=== PATIENT | male | born 1945 | race Caucasian/White ===

== ENCOUNTER 2021-10-01 09:47 | Observation (INO) | payer MEDICARE, OTHER ==
[2021-09-24 15:39] LABS: CLARITY,URINE CLEAR (Clear); COLOR,URINE YELLOW (Yellow); GLUCOSE, URINE NEGATIVE (Neg); KETONES,URINE TRACE mg/dl (Neg); LEUKOCYTE ESTERASE ,URINE NEGATIVE (Neg); NITRITES, URINE NEGATIVE (Neg); OCCULT BLOOD,URINE NEGATIVE (Neg); PH,URINE 5.5 (4.8-8.0); PROTEIN,URINE NEGATIVE (Neg)
[2021-09-24 15:41] LABS: UA COLLECTION TYPE CLN CATCH MIDSTREAM
[2021-09-24 15:49] LABS: BASOPHILS % (AUTO) 0.8 % (0-1); EOSINOPHILS # (AUTO) 0.2 X10'3 (0-0.9); EOSINOPHILS % (AUTO) 3.5 % (0-6); LYMPHOCYTES # (AUTO) 1.3 X10'3 (1.1-4.8); LYMPHOCYTES % (AUTO) 25.4 % (21-51); MEAN CORPUSCULAR HEMOGLOBIN 34.1 PG (27.0-31.0); MEAN CORPUSCULAR HGB CONC 33.6 g/dL (33.0-36.5); MEAN CORPUSCULAR VOLUME 101.5 FL (78-98); MEAN PLATELET VOLUME 8.8 FL (7.4-10.4); MONOCYTES # (AUTO) 0.5 X10'3 (0-0.9); MONOCYTES % (AUTO) 9.8 % (2-12); NEUTROPHILS # (AUTO) 3.2 X10'3 (1.8-7.7); NEUTROPHILS % (AUTO) 60.5 % (42-75); PRE OP HEMATOCRIT 42.8 % (42.0-52.0); PRE OP HEMOGLOBIN 14.4 g/dL (14.0-17.9); PRE OP PLATELET COUNT 145 X10'3 (140-440); RED BLOOD COUNT 4.22 X10'6 (4.70-6.10); RED CELL DISTRIBUTION WIDTH 14.2 % (11.5-14.5)
[2021-09-24 15:51] LABS: ALBUMIN 3.9 G/DL (3.4-5.0); ALKALINE PHOSPHATASE 72 IU/L (46-116); BLOOD UREA NITROGEN 29 MG/DL (7-18); BUN/CREATININE RATIO 20.9 (5.4-32.0); CALCIUM 9.4 MG/DL (8.5-10.1); CHLORIDE 106 MMOL/L (99-107); CREATININE 1.39 MG/DL (0.60-1.10); PRE OP ALT 8 U/L (30-65); PRE OP ANION GAP 6 (8-16); PRE OP AST 19 U/L (10-37); PRE OP BILIRUB, TOTAL 1.2 MG/DL (0.0-1.0); PRE OP GLUCOSE 72 MG/DL (70-104); PRE OP POTASSIUM 4.5 MMOL/L (3.4-5.1); PRE OP SODIUM 141 MMOL/L (135-145); TOTAL CARBON DIOXIDE 29.1 MMOL/L (24-32); TOTAL PROTEIN 7.8 G/DL (6.4-8.2); eGFR 50 ML/MIN
[~2021-10-01] VITALS: Ht 177.8 cm; Wt 77.1 kg
[2021-10-01] VITALS (17 sets, daily range): BP systolic 107–134; BP diastolic 61–93
[~2021-10-01 09:47] MED LIST: AMA100C PO; ASPI-611 PO; CALC250T2 PO; CARB-126 PO; CARB1TAB60 PO; CARV-50 PO; CHOL400T8 PO; CYAN5000 SL; DIGO125T97 PO; DOCUMENT DATE & TIME OF BETA-BLOCKER PO ONE; LOSA50TA64 PO; LOVA20TA2 PO; WARF-55 PO; ceFAZolin inj. 2,000 MG in dextrose 5%-water 100 ML IV ONE; famotidine 20mg tablet PO ONE; ringers solution, lacted 1,000 ML IV SCH
[2021-10-01] MEDS: carbidoba-levodopa 25-100mg tablet PO SCH ×4 (10:51→21:08)
[2021-10-01 11:00] LABS: PRE OP INR 1.1 INR; PRE OP PROTIME 11.4 SECONDS (9.0-12.0)
[2021-10-01] MEDS ORDERED: ondansetron/PF 4mg/2ml inj IV PRN ×2 (11:05→15:40)
[2021-10-01] MEDS ORDERED: ringers solution, lacted 1,000 ML IV SCH (11:05)
[2021-10-01] MEDS ORDERED: morphine 2 MG/ML inj. syringe IV PRN (11:05)
[2021-10-01] MEDS ORDERED: morphine 4 MG/ML inj SYRINge IV PRN (11:05)
[2021-10-01] MEDS ORDERED: proCHLORperazine 10 MG/2 ml inj IV PRN (11:05)
[2021-10-01] MEDS ORDERED: meperidine/PF 25mg/ml syringe IV PRN ×3 (11:05)
[2021-10-01] MEDS ORDERED: BUPIVAcaine/PF 2.5 mg/ml (0.25%) 30ml vial ONE (12:10)
[2021-10-01] MEDS ORDERED: glycopyrrolate 0.2mg/ml inj ONE (13:17)
[2021-10-01] MEDS ORDERED: dexamethasone sod phosphate 10mg/ml inj ONE (13:17)
[2021-10-01] MEDS ORDERED: ondansetron/PF 4mg/2ml inj ONE (13:17)
[2021-10-01] MEDS ORDERED: desflurane 240ml liquid inh. IH ONE (13:17)
[2021-10-01] MEDS ORDERED: midazolam 1 mg/ML 2ml injection ONE (13:25)
[2021-10-01] MEDS ORDERED: fentaNYL /PF 50mcg/ml 5ml ampule ONE (13:25)
[2021-10-01] MEDS ORDERED: acetaminophen 1,000mg/100ml IV 100 ML IV ONE (15:10)
[2021-10-01] MEDS ORDERED: etomidate 2mg/ml inj. ONE (15:10)
[2021-10-01] MEDS ORDERED: neostigmine methylsulfate 1 MG/ML 10ml vial ONE (15:10)
[2021-10-01] MEDS ORDERED: rocuronium 10mg/ml inj IV ONE (15:15)
--- NOTE | 2021-10-01 15:20 | NUR ---
Received from OR via , accompanied by Anesthesiologist and report given by Anesthesiolgist. PATIENT A&OX4, DENIES PAIN, V/S WNL, SCD ON , PIV 20G LUE, DERMABONDED LAPS SITES CLOSED CDI TO ABDOMEN. F/C DRAINING CLEAR YELLOW URINE.
--- NOTE | 2021-10-01 16:10 | NUR ---
PATIENT A&OX4, DENIES PAIN, V/S WNL, SCD ON , PIV 20G LUE, DERMABONDED LAPS SITES CLOSED CDI TO ABDOMEN, NO S/S OF BLEEDING. F/C DRAINING CLEAR YELLOW URINE. PATIENT TAKEN TO 4014B WITH ALL BELONGINGS AND HOOKED UP TO MONITORS IN ROOM AND REPORT GIVEN TO RN WHO HAS TAKEN OVER PATIENT CARE
--- NOTE | 2021-10-01 16:49 | NUR ---
Spoke to the pharmacy about the order for Sinemet (one is for 17:00 and the other one is for 18:30), she said she would call Dr. Schaffer to clarify
--- NOTE | 2021-10-01 18:49 | NUR ---
Patient in room ORTHO 4014. I have received report from Radha RAHMAN and had the opportunity to ask questions and assume patient care.
[2021-10-01] MEDS ORDERED: digoxin 125mcg (0.125mg) tablet PO SCH (21:00)
[2021-10-01] MEDS ORDERED: atorvastatin 10mg tablet PO SCH (21:00)
[2021-10-01] MEDS: carVEDilol 12.5mg tablet PO SCH (21:11)
[2021-10-01] MEDS: amantadine 100 MG capsule PO SCH (21:32)
[2021-10-01] MEDS: HYDROcodone/acetaminophen 10/325mg tab PO PRN (21:40)
--- NOTE | 2021-10-02 05:40 | NUR ---
F/C dc'd at 0530 . He had 1650 in UO last night, and then has voided another 200 since- light yellow.
[2021-10-02 06:00] VITALS: BP 101/71
[2021-10-02 06:05] LABS: APTT 29 SECONDS (22-32)
--- NOTE | 2021-10-02 06:36 | NUR ---
Problems reprioritized. Patient report given, questions answered & plan of care reviewed with Nevin RAHMAN.
--- NOTE | 2021-10-02 06:42 | NUR ---
Patient in room ORTHO 4014. I have received report from JOSIAH Ibarra and had the opportunity to ask questions and assume patient care.
[2021-10-02] MEDS ORDERED: losartan 50mg tablet PO SCH (08:00)
[2021-10-02] MEDS ORDERED: calcium carbonate 500mg tablet PO SCH (08:00)
[2021-10-02] MEDS ORDERED: warfarin 7.5mg tablet PO SCH ×2 (08:00→14:29)
[2021-10-02] MEDS ORDERED: aspirin 81mg, enteric-coated 1 TAB TABLET.DR PO SCH (08:00)
[2021-10-02] MEDS ORDERED: cyanocobalamin 500mcg tablet PO SCH (08:00)
[2021-10-02] MEDS ORDERED: carbidopa/levodopa 25/100mg CR tablet PO SCH ×2 (08:00→09:01)
[2021-10-02] MEDS ORDERED: cholecalciferol (vitamin D3) 400 unit (10mcg) tablet PO SCH (08:00)
[2021-10-02] MEDS: carbidoba-levodopa 25-100mg tablet PO SCH ×2 (08:27→13:39)
[2021-10-02] MEDS: amantadine 100 MG capsule PO SCH (08:30)
[2021-10-02] MEDS: carVEDilol 12.5mg tablet PO SCH (08:30)
[2021-10-02] MEDS: HYDROcodone/acetaminophen 10/325mg tab PO PRN (08:31)
--- NOTE | 2021-10-02 09:00 | NUR ---
Called pharmacy about vitamin B12 scheduled (10 tabs) - not enough tabs in the omnicell. Pharmacist said that the patient takes sublingual B12 and the 10 tabs will not be absorbed PO so they will change that in the computer. Also there is a note from the provider to restart Coumadin on 10/02/21 scheduled for 0800. This is supposed to be scheduled for night time so pharmacist will change it.
[2021-10-02] MEDS ORDERED: CYANOCOBALAMIN 5000 MCG PO SCH (09:06)
[2021-10-02 10:00] VITALS: BP 110/80
[2021-10-02 13:55] VITALS: BP 102/67
--- NOTE | 2021-10-02 15:38 | NUR ---
Patient was discharged with instructions and verbalizing understanding of instructions, in wheelchair accompanied by family and nursing staff, going home via private vehicle. All lines and tubes have been removed including PIV with cannula intact, tele monitor. Education has been provided and all questions answered. No new prescriptions at this time. Patient will call tomorrow morning to make a follow up appointment with Dr. Zarco. Patient is stable and appropriate for discharge.
[2021-10-03] MEDS ORDERED: warfarin 5mg tablet PO SCH (21:00)
[2021-10-03] MEDS ORDERED: ONDA4TAB12 PO ×2 (23:34)
[2021-10-03] MEDS ORDERED: HYDR-3972 PO ×2 (23:34)
[2021-10-03] MEDS ORDERED: DOCU-151 PO ×2 (23:34)
[2021-10-05] MEDS ORDERED: warfarin 5mg tablet PO SCH (08:00)
[2021-10-07] MEDS ORDERED: warfarin 7.5mg tablet PO SCH (17:45)
== END 2021-10-02 15:45 | disposition home or self-care (01) ==
LOC: PAS 09:47 → ORTHO 4S 15:37
PROVIDERS: ADMIT Surgery; ATTEND Surgery
DX: K40.90 Unilateral inguinal hernia, without obstruction or gangrene, not specified as recurrent (principal); Z20.822 Contact with and (suspected) exposure to COVID-19; G20 Parkinson's disease; I42.9 Cardiomyopathy, unspecified; I48.91 Unspecified atrial fibrillation; M35.3 Polymyalgia rheumatica; Z85.828 Personal history of other malignant neoplasm of skin; Z87.891 Personal history of nicotine dependence; Z79.899 Other long term (current) drug therapy
CPT/HCPCS: 36415; 49650; 80053; 81003; 82948; 85025; 85610; 85730; 87081; 87811; C1758; C1781; G0378; J0131; J0690; J1100; J2250; J2405; J2710; J3010; J3490; J7030; J7060; J7120; S2900; A4215; A4618; A6212

== ENCOUNTER 2021-10-03 19:13 | Emergency (ER) | payer MEDICARE, OTHER ==
[~2021-10-03] VITALS: Ht 177.8 cm; Wt 79.5 kg
[~2021-10-03 19:13] MED LIST changes: -DOCUMENT DATE & TIME OF BETA-BLOCKER PO ONE; -ceFAZolin inj. 2,000 MG in dextrose 5%-water 100 ML IV ONE; -famotidine 20mg tablet PO ONE; -ringers solution, lacted 1,000 ML IV SCH
[2021-10-03] MEDS ORDERED: ondansetron/PF 4mg/2ml inj IV ONE (22:10)
[2021-10-03 22:29] LABS: CLARITY,URINE CLEAR (Clear); COLOR,URINE YELLOW (Yellow); GLUCOSE, URINE NEGATIVE (Neg); KETONES,URINE NEGATIVE (Neg); LEUKOCYTE ESTERASE ,URINE NEGATIVE (Neg); NITRITES, URINE NEGATIVE (Neg); OCCULT BLOOD,URINE TRACE-INTACT (Neg); PROTEIN,URINE NEGATIVE (Neg); UROBILINOGEN,URINE 0.2 E.U/dL (0.2-1.0)
[2021-10-03] MEDS: morphine 2 MG/ML inj. syringe IV PRN ×3 (22:29→23:40)
[2021-10-03 22:30] LABS: UA COLLECTION TYPE NON-SPECIFIED
[2021-10-03 22:33] LABS: BASOPHILS % (AUTO) 0.3 % (0-1); EOSINOPHILS # (AUTO) 0.1 X10'3 (0-0.9); HEMATOCRIT 41.5 % (42.0-52.0); LYMPHOCYTES # (AUTO) 0.8 X10'3 (1.1-4.8); LYMPHOCYTES % (AUTO) 13.5 % (21-51); MEAN CORPUSCULAR HGB CONC 33.7 g/dL (33.0-36.5); MEAN CORPUSCULAR VOLUME 100.8 FL (78-98); MEAN PLATELET VOLUME 8.8 FL (7.4-10.4); MONOCYTES # (AUTO) 0.5 X10'3 (0-0.9); MONOCYTES % (AUTO) 8.7 % (2-12); NEUTROPHILS # (AUTO) 4.7 X10'3 (1.8-7.7); NEUTROPHILS % (AUTO) 75.5 % (42-75); PLATELET COUNT 137 X10'3 (140-440); RED BLOOD COUNT 4.11 X10'6 (4.70-6.10); RED CELL DISTRIBUTION WIDTH 14.4 % (11.5-14.5); WHITE BLOOD COUNT 6.2 X10'3 (4.5-11.0)
[2021-10-03 22:44] LABS: BACTERIA,URINE NONE SEEN /HPF (Neg); MUCUS STRANDS NONE SEEN /LPF (Neg); RBC,URINE 0-2 /HPF (0-2); SQUAMOUS EPITHELIAL CELL,UR FEW /LPF (FEW); WBC,URINE 0-4 /HPF (0-4)
[2021-10-03 22:52] LABS: ALANINE AMINOTRANSFERASE 10 U/L (12-78); ALBUMIN 3.5 G/DL (3.4-5.0); ALBUMIN/GLOBULIN RATIO 0.9 (1.1-1.5); ALKALINE PHOSPHATASE 66 IU/L (46-116); ANION GAP 5 (8-16); ASPARTATE AMINO TRANSFERASE 17 U/L (10-37); BILIRUBIN,TOTAL 1.1 MG/DL (0.1-1.0); BLOOD UREA NITROGEN 24 MG/DL (7-18); BUN/CREATININE RATIO 17.6 (5.4-32.0); CALCIUM 9.1 MG/DL (8.5-10.1); CHLORIDE 102 MMOL/L (99-107); CREATININE 1.36 MG/DL (0.60-1.10); GLUCOSE 103 MG/DL (70-104); POTASSIUM 4.6 MMOL/L (3.5-5.1); SODIUM 137 MMOL/L (135-145); TOTAL CARBON DIOXIDE 30.3 MMOL/L (24-32); TOTAL PROTEIN 7.2 G/DL (6.4-8.2); eGFR 51 ML/MIN
[2021-10-03] MEDS ORDERED: HYDR-3972 PO ×2 (23:34)
[2021-10-03] MEDS ORDERED: ONDA4TAB12 PO ×2 (23:34)
[2021-10-03] MEDS ORDERED: DOCU-151 PO ×2 (23:34)
[2021-10-03 23:57] VITALS: BP 135/85
== END 2021-10-03 23:59 | disposition home or self-care (01) ==
LOC: ER 19:14
DX: G89.18 Other acute postprocedural pain (principal); M54.6 Pain in thoracic spine; Z87.891 Personal history of nicotine dependence
CPT/HCPCS: 36415; 71045; 80053; 81001; 85025; 93005; 96374; 96375; 99285; J2270; J2405

== ENCOUNTER 2021-10-05 16:19 | Inpatient (IN) | payer MEDICARE, OTHER ==
[~2021-10-05] VITALS: Ht 177.8 cm; Wt 79.5 kg
[~2021-10-05 16:19] MED LIST changes: +DOCU-151 PO; +HYDR-3972 PO; +ONDA4TAB12 PO
[2021-10-05] MEDS ORDERED: ringers solution, lacted 1,000 ML IV ONE ×2 (16:35→17:30)
--- NOTE | 2021-10-05 16:37 | NUR ---
SPOKE WITH DR BEARDEN REGARDING PT LOW BLOOD PRESSURE IN TRIAGE. RECEIVED VERBAL ORDERS FOR CBC, CMP, EKG, AND 1LITER BOLUS OF LACTATED RINGERS IV. ORDERS PLACED RECEIVED
[2021-10-05 16:51] LABS: BASOPHILS % (AUTO) 0.3 % (0-1); EOSINOPHILS % (AUTO) 1.1 % (0-6); HEMATOCRIT 43.1 % (42.0-52.0); HEMOGLOBIN 14.6 g/dl (14.0-17.9); LYMPHOCYTES # (AUTO) 0.4 X10'3 (1.1-4.8); LYMPHOCYTES % (AUTO) 10.1 % (21-51); MEAN CORPUSCULAR HEMOGLOBIN 34.1 PG (27.0-31.0); MEAN CORPUSCULAR VOLUME 100.3 FL (78-98); MEAN PLATELET VOLUME 8.7 FL (7.4-10.4); MONOCYTES # (AUTO) 0.5 X10'3 (0-0.9); MONOCYTES % (AUTO) 14.6 % (2-12); NEUTROPHILS # (AUTO) 2.8 X10'3 (1.8-7.7); NEUTROPHILS % (AUTO) 73.9 % (42-75); PLATELET COUNT 155 X10'3 (140-440); RED BLOOD COUNT 4.29 X10'6 (4.70-6.10); RED CELL DISTRIBUTION WIDTH 13.9 % (11.5-14.5); WHITE BLOOD COUNT 3.7 X10'3 (4.5-11.0)
[2021-10-05 17:11] LABS: ALANINE AMINOTRANSFERASE 10 U/L (12-78); ALBUMIN 3.5 G/DL (3.4-5.0); ALBUMIN/GLOBULIN RATIO 0.9 (1.1-1.5); ALKALINE PHOSPHATASE 68 IU/L (46-116); ANION GAP 8 (8-16); ASPARTATE AMINO TRANSFERASE 19 U/L (10-37); BILIRUBIN,TOTAL 1.5 MG/DL (0.1-1.0); BLOOD UREA NITROGEN 45 MG/DL (7-18); BUN/CREATININE RATIO 18.9 (5.4-32.0); CALCIUM 9.2 MG/DL (8.5-10.1); CHLORIDE 102 MMOL/L (99-107); CREATININE 2.38 MG/DL (0.60-1.10); GLUCOSE 136 MG/DL (70-104); SODIUM 139 MMOL/L (135-145); TOTAL PROTEIN 7.5 G/DL (6.4-8.2); eGFR 27 ML/MIN
--- NOTE | 2021-10-05 18:30 | NUR ---
ASSUMED CARE OF PT. AWAKE AND ALERT. PLAN OF CARE DISCUSSED WITH PT. VERBELIZED UNDERSTANDING. WILL MONITOR.
[2021-10-05] MEDS ORDERED: magnesium 4gm in 100ml NS 100 ML IV PRN (19:40)
[2021-10-05] MEDS ORDERED: CefTRIAXone 2gm/D5W 50ml BAG 50 ML IV ONE (19:40)
[2021-10-05] MEDS ORDERED: ondansetron/PF 4mg/2ml inj IV PRN (19:40)
[2021-10-05] MEDS ORDERED: magnesium Cl slow-release 64mg tablet PO PRN (19:40)
[2021-10-05] MEDS ORDERED: morphine 2 MG/ML inj. syringe IV PRN (19:40)
[2021-10-05] MEDS ORDERED: potassium CL 10mEq/100ml bag 100 ML IV PRN (19:40)
[2021-10-05] MEDS ORDERED: acetaminophen 325mg tablet PO PRN ×2 (19:40)
[2021-10-05] MEDS ORDERED: HYDROcodone/acetaminophen 5mg/325mg tablet PO PRN (19:40)
[2021-10-05] MEDS ORDERED: magnesium hydroxide 30ml (MOM) UD suspension PO PRN (19:40)
[2021-10-05] MEDS ORDERED: POTASSIUM BICARB 20meq eff tab 20 MEQ TABLET.EFF PO PRN ×2 (19:40)
[2021-10-05] MEDS ORDERED: magnesium 2GM in 50ml NS 50 ML IV PRN (19:40)
[2021-10-05] MEDS: heparin, porcine 5000 units/ml vial SQ SCH (20:29)
[2021-10-05] MEDS: normal saline 1000ml 1,000 ML IV SCH (20:29)
[2021-10-05] MEDS: K and/or MAG REPLACEMENT MC SCH (20:30)
[2021-10-05] MEDS ORDERED: temazepam 15mg capsule PO PRN (21:00)
[2021-10-05] MEDS ORDERED: HYDR-4298 PO (21:16)
[2021-10-05] MEDS ORDERED: ONDA4TAB12 PO (21:19)
--- NOTE | 2021-10-05 21:20 | NUR ---
BLADDER SCAN PT. 226MLS IN BLADDER. PER DR. SHARP HOLD CABA CATH AT THIS TIME.
[2021-10-05] MEDS ORDERED: DOCU-148 PO (21:45)
--- NOTE | 2021-10-05 22:00 | NUR ---
Received report from WOOD STRIP BLOCK FLOOR INSTALLERJOSIAH Vargas. Patient to follow shortly.
--- NOTE | 2021-10-05 22:10 | NUR ---
Patient arrived from the ER via gurney accompanied by his . A&Ox4, pt transferred himself to bed min assist and VS taken.
[2021-10-05 22:15] VITALS: BP 114/72
[2021-10-05] MEDS ORDERED: CARB1TAB42 PO (23:40)
[2021-10-06] MEDS: carbidopa/levodopa 50/200mg CR tablet PO SCH ×2 (00:06→21:26)
[2021-10-06] MEDS: amantadine 100 MG capsule PO SCH ×3 (00:06→21:21)
[2021-10-06] MEDS: atorvastatin 10mg tablet PO SCH ×2 (00:06→21:25)
[2021-10-06] MEDS: carVEDilol 12.5mg tablet PO SCH ×3 (00:06→20:00)
[2021-10-06] MEDS: digoxin 125mcg (0.125mg) tablet PO SCH ×2 (00:12→21:24)
[2021-10-06 02:00] VITALS: BP 101/70
--- NOTE | 2021-10-06 04:30 | NUR ---
Bladder scan reveals 407CC. Patient voided 50cc out in urinal. Post void bladder scan =336cc.
[2021-10-06 06:43] LABS: BASOPHILS % (AUTO) 0.4 % (0-1); EOSINOPHILS # (AUTO) 0.2 X10'3 (0-0.9); EOSINOPHILS % (AUTO) 4.5 % (0-6); HEMATOCRIT 37.7 % (42.0-52.0); HEMOGLOBIN 12.8 g/dl (14.0-17.9); LYMPHOCYTES # (AUTO) 0.7 X10'3 (1.1-4.8); LYMPHOCYTES % (AUTO) 21.6 % (21-51); MEAN CORPUSCULAR HEMOGLOBIN 34.3 PG (27.0-31.0); MEAN CORPUSCULAR VOLUME 100.9 FL (78-98); MEAN PLATELET VOLUME 9.1 FL (7.4-10.4); MONOCYTES # (AUTO) 0.7 X10'3 (0-0.9); MONOCYTES % (AUTO) 21.4 % (2-12); NEUTROPHILS # (AUTO) 1.8 X10'3 (1.8-7.7); NEUTROPHILS % (AUTO) 52.1 % (42-75); PLATELET COUNT 153 X10'3 (140-440); RED BLOOD COUNT 3.74 X10'6 (4.70-6.10); WHITE BLOOD COUNT 3.4 X10'3 (4.5-11.0)
[2021-10-06 07:06] LABS: PLATELET ESTIMATE NORMAL; TOTAL CELLS COUNTED 100
[2021-10-06 07:16] LABS: ALANINE AMINOTRANSFERASE 13 U/L (12-78); ALBUMIN 2.9 G/DL (3.4-5.0); ALBUMIN/GLOBULIN RATIO 0.8 (1.1-1.5); ALKALINE PHOSPHATASE 56 IU/L (46-116); ANION GAP 8 (8-16); ASPARTATE AMINO TRANSFERASE 19 U/L (10-37); BILIRUBIN,TOTAL 1.2 MG/DL (0.1-1.0); BLOOD UREA NITROGEN 38 MG/DL (7-18); BUN/CREATININE RATIO 25.3 (5.4-32.0); CALCIUM 8.3 MG/DL (8.5-10.1); CHLORIDE 101 MMOL/L (99-107); GLUCOSE 84 MG/DL (70-104); POTASSIUM 4.8 MMOL/L (3.5-5.1); SODIUM 138 MMOL/L (135-145); TOTAL CARBON DIOXIDE 28.9 MMOL/L (24-32); TOTAL PROTEIN 6.4 G/DL (6.4-8.2); eGFR 45 ML/MIN
[2021-10-06 07:20] VITALS: BP 109/64
[2021-10-06] MEDS: carbidoba-levodopa 25-100mg tablet PO SCH ×4 (07:20→21:25)
[2021-10-06] MEDS: heparin, porcine 5000 units/ml vial SQ SCH ×2 (07:21→21:21)
[2021-10-06] MEDS: K and/or MAG REPLACEMENT MC SCH ×2 (07:21→20:00)
[2021-10-06] MEDS: losartan 50mg tablet PO SCH (07:21)
[2021-10-06 10:09] VITALS: BP 100/64
[2021-10-06] MEDS: normal saline 1000ml 1,000 ML IV SCH ×2 (10:36→23:30)
[2021-10-06 18:00] VITALS: BP 99/58
--- NOTE | 2021-10-06 18:09 | NUR ---
Problems reprioritized. Patient report given, questions answered & plan of care reviewed with JOSIAH Ibarra.
--- NOTE | 2021-10-06 18:15 | NUR ---
Patient in room ORTHO 4009. I have received report from Antonia RAHMAN and had the opportunity to ask questions and assume patient care.
[2021-10-06 21:20] VITALS: BP 100/63
[2021-10-06] MEDS: diatr meglu/diatrizoate 30ml oral sol.-(3 dose) bottle PO SCH (21:22)
[2021-10-06 22:00] VITALS: BP 102/68
[2021-10-07 07:10] VITALS: BP 103/74
[2021-10-07 07:10] LABS: BASOPHILS % (AUTO) 0.5 % (0-1); EOSINOPHILS # (AUTO) 0.2 X10'3 (0-0.9); EOSINOPHILS % (AUTO) 4.9 % (0-6); HEMATOCRIT 36.5 % (42.0-52.0); HEMOGLOBIN 12.5 g/dl (14.0-17.9); LYMPHOCYTES % (AUTO) 24.7 % (21-51); MEAN CORPUSCULAR HEMOGLOBIN 34.6 PG (27.0-31.0); MEAN CORPUSCULAR HGB CONC 34.2 g/dL (33.0-36.5); MEAN CORPUSCULAR VOLUME 100.9 FL (78-98); MONOCYTES # (AUTO) 0.7 X10'3 (0-0.9); MONOCYTES % (AUTO) 16.4 % (2-12); NEUTROPHILS # (AUTO) 2.2 X10'3 (1.8-7.7); NEUTROPHILS % (AUTO) 53.5 % (42-75); PLATELET COUNT 145 X10'3 (140-440); RED BLOOD COUNT 3.62 X10'6 (4.70-6.10); RED CELL DISTRIBUTION WIDTH 13.9 % (11.5-14.5); WHITE BLOOD COUNT 4.1 X10'3 (4.5-11.0)
[2021-10-07] MEDS: diatr meglu/diatrizoate 30ml oral sol.-(3 dose) bottle PO SCH ×2 (07:10→08:32)
[2021-10-07 07:34] LABS: ALANINE AMINOTRANSFERASE 9 U/L (12-78); ALBUMIN 2.7 G/DL (3.4-5.0); ALBUMIN/GLOBULIN RATIO 0.8 (1.1-1.5); ANION GAP 9 (8-16); ASPARTATE AMINO TRANSFERASE 25 U/L (10-37); BILIRUBIN,TOTAL 1.2 MG/DL (0.1-1.0); BLOOD UREA NITROGEN 23 MG/DL (7-18); BUN/CREATININE RATIO 20.5 (5.4-32.0); CALCIUM 8.4 MG/DL (8.5-10.1); CHLORIDE 104 MMOL/L (99-107); CREATININE 1.12 MG/DL (0.60-1.10); GLUCOSE 69 MG/DL (70-104); POTASSIUM 4.2 MMOL/L (3.5-5.1); SODIUM 140 MMOL/L (135-145); TOTAL CARBON DIOXIDE 27.5 MMOL/L (24-32); TOTAL PROTEIN 6.2 G/DL (6.4-8.2); eGFR 64 ML/MIN
[2021-10-07] MEDS: heparin, porcine 5000 units/ml vial SQ SCH ×2 (08:00→21:16)
[2021-10-07] MEDS: K and/or MAG REPLACEMENT MC SCH ×2 (08:00→20:00)
[2021-10-07 08:22] LABS: PLATELET ESTIMATE DECREASED; TOTAL CELLS COUNTED 100
[2021-10-07 08:34] LABS: ALKALINE PHOSPHATASE 56 IU/L (46-116)
[2021-10-07] MEDS: amantadine 100 MG capsule PO SCH ×2 (09:14→21:15)
[2021-10-07] MEDS: carbidoba-levodopa 25-100mg tablet PO SCH ×4 (09:14→21:15)
[2021-10-07] MEDS: carVEDilol 12.5mg tablet PO SCH ×2 (09:17→20:00)
[2021-10-07] MEDS: losartan 50mg tablet PO SCH (09:17)
[2021-10-07 10:25] VITALS: BP 127/79
--- NOTE | 2021-10-07 13:25 | NUR ---
PAGER ID: [phone] MESSAGE: [id number] Lexii Owens: HELIO CT scan report has just resulted. thanks! [email or web address] [phone]
[2021-10-07] MEDS: normal saline 1000ml 1,000 ML IV SCH (14:10)
[2021-10-07 18:00] VITALS: BP 114/78
--- NOTE | 2021-10-07 18:10 | NUR ---
Problems reprioritized. Patient report given, questions answered & plan of care reviewed with JOSIAH Ibarra.
--- NOTE | 2021-10-07 18:30 | NUR ---
Patient in room ORTHO 4009. I have received report from Antonia RAHMAN and had the opportunity to ask questions and assume patient care.
[2021-10-07 21:15] VITALS: BP 112/76
[2021-10-07] MEDS: carbidopa/levodopa 50/200mg CR tablet PO SCH (21:15)
[2021-10-07] MEDS: atorvastatin 10mg tablet PO SCH (21:15)
[2021-10-07] MEDS: digoxin 125mcg (0.125mg) tablet PO SCH (21:24)
[2021-10-07 22:00] VITALS: BP 115/81
[2021-10-08 02:00] VITALS: BP 103/68
[2021-10-08] MEDS: normal saline 1000ml 1,000 ML IV SCH (04:52)
--- NOTE | 2021-10-08 06:34 | NUR ---
Patient in room ORTHO 4009. I have received report from Elsy RAHMAN and had the opportunity to ask questions and assume patient care.
[2021-10-08 06:46] LABS: BASOPHILS % (AUTO) 0.6 % (0-1); EOSINOPHILS # (AUTO) 0.2 X10'3 (0-0.9); EOSINOPHILS % (AUTO) 3.9 % (0-6); HEMATOCRIT 36.9 % (42.0-52.0); HEMOGLOBIN 12.5 g/dl (14.0-17.9); LYMPHOCYTES % (AUTO) 25.4 % (21-51); MEAN CORPUSCULAR HEMOGLOBIN 34.4 PG (27.0-31.0); MEAN CORPUSCULAR HGB CONC 33.8 g/dL (33.0-36.5); MEAN CORPUSCULAR VOLUME 101.8 FL (78-98); MEAN PLATELET VOLUME 8.8 FL (7.4-10.4); MONOCYTES # (AUTO) 0.5 X10'3 (0-0.9); NEUTROPHILS # (AUTO) 2.3 X10'3 (1.8-7.7); NEUTROPHILS % (AUTO) 57.1 % (42-75); PLATELET COUNT 146 X10'3 (140-440); RED BLOOD COUNT 3.63 X10'6 (4.70-6.10); WHITE BLOOD COUNT 4.1 X10'3 (4.5-11.0)
--- NOTE | 2021-10-08 06:49 | NUR ---
Problems reprioritized. Patient report given, questions answered & plan of care reviewed with Sridevi RAHMAN.
[2021-10-08 07:00] VITALS: BP 111/73
[2021-10-08 07:17] LABS: ALANINE AMINOTRANSFERASE 11 U/L (12-78); ALBUMIN 2.8 G/DL (3.4-5.0); ALBUMIN/GLOBULIN RATIO 0.8 (1.1-1.5); ALKALINE PHOSPHATASE 61 IU/L (46-116); ANION GAP 7 (8-16); ASPARTATE AMINO TRANSFERASE 27 U/L (10-37); BILIRUBIN,TOTAL 1.1 MG/DL (0.1-1.0); BLOOD UREA NITROGEN 15 MG/DL (7-18); BUN/CREATININE RATIO 13.5 (5.4-32.0); CALCIUM 8.7 MG/DL (8.5-10.1); CHLORIDE 107 MMOL/L (99-107); CREATININE 1.11 MG/DL (0.60-1.10); GLUCOSE 80 MG/DL (70-104); POTASSIUM 4.1 MMOL/L (3.5-5.1); SODIUM 143 MMOL/L (135-145); TOTAL CARBON DIOXIDE 28.6 MMOL/L (24-32); TOTAL PROTEIN 6.3 G/DL (6.4-8.2); eGFR 64 ML/MIN
[2021-10-08] MEDS: K and/or MAG REPLACEMENT MC SCH (08:00)
[2021-10-08 08:17] VITALS: BP_SYST 111
[2021-10-08] MEDS: losartan 50mg tablet PO SCH (08:17)
[2021-10-08] MEDS: carVEDilol 12.5mg tablet PO SCH (08:17)
[2021-10-08] MEDS: carbidoba-levodopa 25-100mg tablet PO SCH (08:17)
[2021-10-08] MEDS: amantadine 100 MG capsule PO SCH (08:17)
[2021-10-08] MEDS: heparin, porcine 5000 units/ml vial SQ SCH (08:18)
[2021-10-08] MEDS ORDERED: POLY17PO10 PO (09:28)
--- NOTE | 2021-10-08 10:50 | NUR ---
PATIENT UP AND ABOUT AMBULATING WITH AND AIDE. IS FOR DISCHARGE NO C/O PAIN WAS ABLE TO HAVE bm THIS AM. aLL dC INSTRUCTIONS GIVEN TO PATIENT AND . PATIENT dC HOME VIA PRIVATE CAR IN STABLE CONDITION TO HOME.
--- NOTE | 2021-10-08 11:31 | NUR ---
Patient Dc home 1130hrs
--- NOTE | 2021-10-14 12:16 | NUR ---
Case Management DC follow up: Spoke with Patient via telephone.S/P: Patient Reports: Denies Acute/continuous CP, emergent SOB, resp distress, orthopnea, dyspnea, , NV, weakness, vertigo, syncope episodes, orthostatic hypotension, KELSEY, blurry vision, s/s of stroke/BE-FAST, dysuria, hematuria , retention, abdominal pain/distention, hematochezia, melena, unexplained bruising, bleeding, fever, chills.Verbalizes he has been passing flatus; however, has not had a bowel movement in three days.Verbalized when he went to pharmacy there wasn't any MiraLAX for him to picker packer. I phoned pharmacy ,was apprised that Patient's prescriptions were filled and ready for Patient to picker packer.Telephoned Patient back and apprised him that his prescriptions were ready for picker packer.Verbalizes understanding of new Rx:, why prescribed; continues/resumes current Rx as ordered.Verbalizes his hernia repair incision is intact; no s/s of infection ;verbalizing there is no signs of redness, swelling, bad odor, and/or warmth to touch.Verbalizes understanding of s/s that warrant a 9-11/ER visit for further evaluation. Verbalizes compliance with aftercare; is up walking more each day. Verbalizes no signs of tenderness, swelling nor redness at his calves.Verbalizes he has appointment with 10/14/21, and plans to call and schedule appoint with Dr. Knight.Verbalizes the care at [facility] was wonderful. Needs met, questions/concerns addressed at DC; no further questions/concerns regarding recent hospital stay and/or DC status at this time.
== END 2021-10-08 11:20 | disposition home or self-care (01) | DRG 388 ==
LOC: ER 16:20 → ED HOLD 19:44 → ORTHO 4S 22:11
PROVIDERS: ADMIT Internal Medicine; ATTEND Family Medicine
PROC: 0D9670Z Drainage of Stomach with Drainage Device, Via Natural or Artificial Opening (ICD-10-PCS; principal; 2021-10-05)
DX: K56.600 Partial intestinal obstruction, unspecified as to cause (principal); N17.0 Acute kidney failure with tubular necrosis; I42.9 Cardiomyopathy, unspecified; K56.7 Ileus, unspecified; N18.30 Chronic kidney disease, stage 3 unspecified; I48.91 Unspecified atrial fibrillation; G20 Parkinson's disease; K59.03 Drug induced constipation; E86.0 Dehydration; T50.995A Adverse effect of other drugs, medicaments and biological substances, initial encounter; I05.9 Rheumatic mitral valve disease, unspecified; I25.10 Atherosclerotic heart disease of native coronary artery without angina pectoris; I50.9 Heart failure, unspecified; M35.3 Polymyalgia rheumatica; Z79.01 Long term (current) use of anticoagulants; Z86.73 Personal history of transient ischemic attack (TIA), and cerebral infarction without residual deficits; Z95.810 Presence of automatic (implantable) cardiac defibrillator; Y92.89 Other specified places as the place of occurrence of the external cause
CPT/HCPCS: 36415; 71045; 74176; 80053; 81001; 83605; 83880; 84145; 84484; 85007; 85025; 85610; 87040; 87081; 93005; 96374; 96375; 99285; G0378; J0696; J1644; J2270; J2405; J7030; J7120; Q9963

== ENCOUNTER 2023-03-22 11:56 | Inpatient (IN) | payer MEDICARE, OTHER ==
[~2023-03-22] VITALS: Ht 175.3 cm; Wt 81.8 kg
[~2023-03-22 11:56] MED LIST changes: +CARB1TAB42 PO; +DOCU-148 PO; -DOCU-151 PO; -HYDR-3972 PO; +HYDR-4298 PO
[2023-03-22] MEDS ORDERED: TETanus/Pertussis (Acell)/Diphther VAC/PF (Tdap-Adult) 0.5ml syringe IMVAC ONE (15:15)
[2023-03-22] MEDS ORDERED: acetaminophen 325mg tablet PO ONE (17:15)
[2023-03-22 17:18] LABS: BILIRUBIN,URINE NEGATIVE (Neg); CLARITY,URINE CLEAR (Clear); COLOR,URINE YELLOW (Yellow); GLUCOSE, URINE NEGATIVE (Neg); KETONES,URINE NEGATIVE (Neg); LEUKOCYTE ESTERASE ,URINE NEGATIVE (Neg); NITRITES, URINE NEGATIVE (Neg); OCCULT BLOOD,URINE TRACE-INTACT (Neg); PROTEIN,URINE NEGATIVE (Neg); UROBILINOGEN,URINE 0.2 E.U/dL (0.2-1.0)
[2023-03-22 17:23] LABS: UA COLLECTION TYPE URINAL
[2023-03-22 17:25] LABS: RBC,URINE 0-2 /HPF (0-2); WBC,URINE NONE SEEN /HPF (0-4)
[2023-03-22] MEDS ORDERED: morphine 2 MG/ML inj. syringe IV PRN (17:25)
[2023-03-22] MEDS ORDERED: ondansetron/PF 4mg/2ml inj IV PRN (17:25)
[2023-03-22] MEDS ORDERED: bisacodyl 10mg suppository rectal RC PRN (17:25)
[2023-03-22] MEDS ORDERED: mag hydrox/Alum hydrox/simeth 30ml oral suspension PO PRN (17:25)
[2023-03-22] MEDS ORDERED: acetaminophen 325mg tablet PO PRN (17:25)
[2023-03-22] MEDS ORDERED: diphenhydrAMINE 25mg capsule PO PRN (17:25)
[2023-03-22] MEDS ORDERED: HYDROcodone/acetaminophen 5mg/325mg tablet PO PRN (17:25)
[2023-03-22] MEDS ORDERED: diphenhydrAMINE 50 mg/ml inj IV PRN (17:25)
[2023-03-22] MEDS ORDERED: ondansetron 4mg rapidly disintigrating tab PO PRN (17:25)
[2023-03-22] MEDS ORDERED: magnesium hydroxide 30ml (MOM) UD suspension PO PRN (17:25)
[2023-03-22] MEDS ORDERED: acetaminophen 650mg rectal suppository RC PRN (17:25)
[2023-03-22 17:26] LABS: BACTERIA,URINE NONE SEEN /HPF (Neg); SQUAMOUS EPITHELIAL CELL,UR NONE SEEN /LPF (FEW)
[2023-03-22 18:09] LABS: BASOPHILS % (AUTO) 0.8 % (0-1); EOSINOPHILS # (AUTO) 0.3 X10'3 (0-0.9); EOSINOPHILS % (AUTO) 5.3 % (0-6); HEMATOCRIT 41.5 % (42.0-52.0); HEMOGLOBIN 13.7 g/dl (14.0-17.9); LYMPHOCYTES # (AUTO) 1.2 X10'3 (1.1-4.8); LYMPHOCYTES % (AUTO) 23.5 % (21-51); MEAN CORPUSCULAR HEMOGLOBIN 34.2 PG (27.0-31.0); MEAN CORPUSCULAR HGB CONC 33.1 g/dL (33.0-36.5); MEAN CORPUSCULAR VOLUME 103.1 FL (78-98); MEAN PLATELET VOLUME 9.3 FL (7.4-10.4); MONOCYTES # (AUTO) 0.4 X10'3 (0-0.9); NEUTROPHILS # (AUTO) 3.2 X10'3 (1.8-7.7); NEUTROPHILS % (AUTO) 62.4 % (42-75); PLATELET COUNT 134 X10'3 (140-440); RED BLOOD COUNT 4.02 X10'6 (4.70-6.10); RED CELL DISTRIBUTION WIDTH 14.2 % (11.5-14.5); WHITE BLOOD COUNT 5.1 X10'3 (4.5-11.0)
[2023-03-22 18:15] LABS: APTT 41 SECONDS (22-32); INR 2.1 INR; PROTHROMBIN TIME 21.1 SECONDS (9.0-12.0)
[2023-03-22 18:20] LABS: ETHANOL < 10 MG/DL (<10)
[2023-03-22 18:33] LABS: DIGOXIN 0.5 NG/ML (0.9-1.9); MAGNESIUM 2.3 MG/DL (1.5-2.4); PHOSPHORUS 3.2 MG/DL (2.3-4.5)
[2023-03-22 18:48] LABS: HEMOGLOBIN A1C 4.9 % (4.5-6.2)
[2023-03-22] MEDS: normal saline 1000ml 1,000 ML IV SCH (19:17)
[2023-03-22] MEDS ORDERED: temazepam 15mg capsule PO PRN (21:00)
[2023-03-22 21:19] LABS: PLATELET ESTIMATE DECREASED; TOTAL CELLS COUNTED 100
[2023-03-22 21:19] LABS: ALBUMIN 3.1 G/DL (3.4-5.0); ALKALINE PHOSPHATASE 63 IU/L (46-116); ANION GAP 6 (8-16); ASPARTATE AMINO TRANSFERASE 20 U/L (10-37); BILIRUBIN,TOTAL 0.9 MG/DL (0.1-1.0); BLOOD UREA NITROGEN 25 MG/DL (7-18); BUN/CREATININE RATIO 21.6 (10.0-20.0); CALCIUM 8.3 MG/DL (8.5-10.1); CHLORIDE 108 MMOL/L (99-107); CREATININE 1.16 MG/DL (0.60-1.10); GLUCOSE 99 MG/DL (70-104); POTASSIUM 3.8 MMOL/L (3.5-5.1); SODIUM 141 MMOL/L (135-145); TOTAL CARBON DIOXIDE 27.3 MMOL/L (24-32); TOTAL PROTEIN 6.2 G/DL (6.4-8.2); eCRCL 52 ML/MIN; eGFR 61 ML/MIN
[2023-03-22 21:24] LABS: ALANINE AMINOTRANSFERASE < 6 U/L (12-78)
[2023-03-22] MEDS: docusate sod 100mg capsule PO SCH (21:57)
[2023-03-22] MEDS ORDERED: LIDOcaine 1%/PF 5ML 10 MG/ML VIAL SQ ONE (22:00)
[2023-03-23] MEDS: normal saline 1000ml 1,000 ML IV SCH (03:25)
[2023-03-23] MEDS: docusate sod 100mg capsule PO SCH (07:03)
[2023-03-23] MEDS ORDERED: pantoprazole 40mg Tablet.DR PO SCH (07:30)
[2023-03-23 08:42] LABS: BASOPHILS % (AUTO) 0.9 % (0-1); EOSINOPHILS # (AUTO) 0.3 X10'3 (0-0.9); HEMOGLOBIN 13.6 g/dl (14.0-17.9); LYMPHOCYTES % (AUTO) 18.5 % (21-51); MEAN CORPUSCULAR HEMOGLOBIN 34.4 PG (27.0-31.0); MEAN CORPUSCULAR HGB CONC 33.1 g/dL (33.0-36.5); MEAN CORPUSCULAR VOLUME 103.7 FL (78-98); MEAN PLATELET VOLUME 8.9 FL (7.4-10.4); MONOCYTES # (AUTO) 0.5 X10'3 (0-0.9); MONOCYTES % (AUTO) 9.4 % (2-12); NEUTROPHILS # (AUTO) 3.5 X10'3 (1.8-7.7); NEUTROPHILS % (AUTO) 65.2 % (42-75); PLATELET COUNT 122 X10'3 (140-440); RED BLOOD COUNT 3.95 X10'6 (4.70-6.10); RED CELL DISTRIBUTION WIDTH 14.3 % (11.5-14.5); WHITE BLOOD COUNT 5.3 X10'3 (4.5-11.0)
[2023-03-23 08:59] LABS: ALANINE AMINOTRANSFERASE 19 U/L (12-78); ALBUMIN 3.3 G/DL (3.4-5.0); ALBUMIN/GLOBULIN RATIO 0.9 (1.1-1.5); ALKALINE PHOSPHATASE 69 IU/L (46-116); ANION GAP 10 (8-16); ASPARTATE AMINO TRANSFERASE 17 U/L (10-37); BILIRUBIN,TOTAL 1.2 MG/DL (0.1-1.0); BLOOD UREA NITROGEN 20 MG/DL (7-18); BUN/CREATININE RATIO 17.7 (10.0-20.0); CHLORIDE 107 MMOL/L (99-107); CHOL/HDL RATIO 2.5 (0.00-4.99); CHOLESTEROL 120 MG/DL (0-200); CREATININE 1.13 MG/DL (0.60-1.10); GLUCOSE 72 MG/DL (70-104); HDL CHOLESTEROL 48 MG/DL (35-60); LDL CHOLESTEROL 63 MG/DL (50-100); POTASSIUM 4.5 MMOL/L (3.5-5.1); SODIUM 142 MMOL/L (135-145); TOTAL CARBON DIOXIDE 25.3 MMOL/L (24-32); TOTAL PROTEIN 7.1 G/DL (6.4-8.2); TRIGLYCERIDES 43 MG/DL (20-135); eCRCL 54 ML/MIN; eGFR 63 ML/MIN
[2023-03-23 09:39] VITALS: BP 109/71; PULSE 67; RESP 16; TEMP 98.1; O2SAT 97
== END 2023-03-23 14:00 | disposition home or self-care (01) | DRG 605 ==
LOC: ER 11:57 → ED HOLD 17:28 → EDBEDREQ 03-23 06:18 → PCU 3S 03-23 09:19
PROVIDERS: ADMIT Family Medicine; ATTEND Family Medicine
PROC: 0HQ1XZZ Repair Face Skin, External Approach (ICD-10-PCS; principal; 2023-03-22)
PROC: 3E0234Z Introduction of Serum, Toxoid and Vaccine into Muscle, Percutaneous Approach (ICD-10-PCS; 2023-03-22)
DX: S00.93XA Contusion of unspecified part of head, initial encounter (principal); I42.9 Cardiomyopathy, unspecified; N17.9 Acute kidney failure, unspecified; I50.32 Chronic diastolic (congestive) heart failure; S01.112A Laceration without foreign body of left eyelid and periocular area, initial encounter; G89.4 Chronic pain syndrome; I48.91 Unspecified atrial fibrillation; N18.9 Chronic kidney disease, unspecified; J44.9 Chronic obstructive pulmonary disease, unspecified; I25.10 Atherosclerotic heart disease of native coronary artery without angina pectoris; N40.0 Benign prostatic hyperplasia without lower urinary tract symptoms; E78.5 Hyperlipidemia, unspecified; G20.A1 Parkinson's disease without dyskinesia, without mention of fluctuations; W18.39XA Other fall on same level, initial encounter; Y93.01 Activity, walking, marching and hiking; Y99.8 Other external cause status; Z79.01 Long term (current) use of anticoagulants; Y92.89 Other specified places as the place of occurrence of the external cause; Z95.0 Presence of cardiac pacemaker; Z95.2 Presence of prosthetic heart valve; Z79.891 Long term (current) use of opiate analgesic; Z79.899 Other long term (current) drug therapy; W19.XXXA Unspecified fall, initial encounter; Y93.9 Activity, unspecified; Y92.9 Unspecified place or not applicable
CPT/HCPCS: 36415; 70450; 80053; 80061; 80162; 80320; 81001; 83036; 83735; 83880; 84100; 84484; 85007; 85025; 85610; 85730; 90715; 93005; 93306; 99285; A6449; G0378; J3490; J7030

== ENCOUNTER 2024-06-21 12:55 | Emergency (ER) | payer MEDICARE, OTHER ==
[~2024-06-21] VITALS: Ht 177.8 cm; Wt 77.3 kg
[~2024-06-21 12:55] MED LIST changes: +ONDA-243 PO; -ONDA4TAB12 PO; -WARF-55 PO
--- NOTE | 2024-06-21 13:13 | ELECTROCARDIOGRAPH REPORT ---
[facility] Test Date: 2024-06-21 Test Time: 12:56:36 Pat Name: ALEXA BELLO Department: EMERGENCY ROOM Room: Gender: M Appointment Scheduler: : 1945 Requested By: PENNIE HERRERA Order Number: [id number] Reading MD: Dr. Torsten Dumont Measurements Intervals [place] Rate: 90 P: 0 HI: 0 QRS: -67 QRSD: 122 T: 62 QT: 353 QTc: 432 Interpretive Statements Atrial fibrillation Nonspecific IVCD with LAD Left ventricular hypertrophy Electronically Signed On 06-21-2024 18:18:[address] Torsten Dumont Please click the below link to view image of tracing.
[2024-06-21 13:22] LABS: BASOPHILS # (AUTO) 0.1 X10'3 (0-0.2); BASOPHILS % (AUTO) 1.2 % (0-1); EOSINOPHILS # (AUTO) 0.3 X10'3 (0-0.9); HEMATOCRIT 41.6 % (42.0-52.0); HEMOGLOBIN 13.9 g/dl (14.0-17.9); LYMPHOCYTES # (AUTO) 1.1 X10'3 (1.1-4.8); LYMPHOCYTES % (AUTO) 20.2 % (21-51); MEAN CORPUSCULAR HEMOGLOBIN 34.7 PG (27.0-31.0); MEAN CORPUSCULAR HGB CONC 33.5 g/dL (33.0-36.5); MEAN CORPUSCULAR VOLUME 103.5 FL (78-98); MEAN PLATELET VOLUME 8.6 FL (7.4-10.4); MONOCYTES # (AUTO) 0.4 X10'3 (0-0.9); MONOCYTES % (AUTO) 7.5 % (2-12); NEUTROPHILS # (AUTO) 3.5 X10'3 (1.8-7.7); NEUTROPHILS % (AUTO) 65.1 % (42-75); PLATELET COUNT 142 X10'3 (140-440); RED BLOOD COUNT 4.02 X10'6 (4.70-6.10); RED CELL DISTRIBUTION WIDTH 14.3 % (11.5-14.5); WHITE BLOOD COUNT 5.3 X10'3 (4.5-11.0)
[2024-06-21 13:41] LABS: ALBUMIN 3.8 G/DL (3.4-5.0); ALBUMIN/GLOBULIN RATIO 1.1 (1.1-1.5); ALKALINE PHOSPHATASE 82 IU/L (46-116); ANION GAP 5 (8-16); ASPARTATE AMINO TRANSFERASE 15 U/L (10-37); BILIRUBIN,TOTAL 0.7 MG/DL (0.1-1.0); BLOOD UREA NITROGEN 31 MG/DL (7-18); CALCIUM 9.1 MG/DL (8.5-10.1); CHLORIDE 110 MMOL/L (99-107); CREATININE 1.35 MG/DL (0.60-1.10); GLUCOSE 93 MG/DL (70-104); POTASSIUM 4.6 MMOL/L (3.5-5.1); SODIUM 142 MMOL/L (135-145); TOTAL CARBON DIOXIDE 27.3 MMOL/L (24-32); TOTAL PROTEIN 7.3 G/DL (6.4-8.2); eCRCL 46 ML/MIN; eGFR 51 ML/MIN
[2024-06-21 13:48] LABS: PRO BRAIN NATRIURETIC PEPTIDE 749 PG/ML (0-450)
[2024-06-21 13:52] LABS: ALANINE AMINOTRANSFERASE < 6 U/L (12-78)
--- NOTE | 2024-06-21 14:01 | RADIOLOGY REPORT ---
EXAM: DI CHEST,SINGLE VIEW Indication: CP Technique: Single frontal view of the chest was obtained Comparison: CHEST,SINGLE VIEW on DOS: 10/05/21, CHEST,SINGLE VIEW on DOS: 10/03/21 FINDINGS: Lines and Tubes: Cardiac pacemaker projects over left chest wall. Lungs: No focal consolidation. Pleura: No effusion. No pneumothorax. Cardiomediastinal contours: Unremarkable Bones: No acute osseous abnormality. IMPRESSION: No acute cardiopulmonary disease.
--- NOTE | 2024-06-21 14:17 | Physician Documentation ---
History of Present Illness ~ Chief Complaint: Dizziness Stated Complaint: DIZZINESS/NEAR SYNCOPE Time Seen by MD: 13:49 Primary Medical Doctor: NONE Mode of Arrival: POV HPI This 78-year-old male presents to the ED after having an acute onset dizziness spell this afternoon while bowling. States that he was attempting to ball and felt as though he had decreased ability to balance himself. He sat down for a few minutes and then tried to bowl again with the same symptoms. This patient has a history of Parkinson's, atrial fibrillation, congestive heart failure and CVA. He currently states he feels fine in his being followed by Dr. Bautista and a neurologist at the [facility]. denies any chest pain or shortness of breath. Denies any nausea or radiating chest pain denies any weakness as well. Day of Onset: Jun 21, 2024 Medication Reconciliation Allergies: Coded Allergies: No Known Allergies (Unverified , 06/21/24) Scheduled Amantadine Hcl* (Symmetrel*), 1 TAB PO Q12H, (Reported) Aspirin (Aspir 81), 1 TAB PO DAILY, (Reported) Calcium Citrate (Calcium Citrate), 2 TAB PO DAILY, (Reported) Carbidopa/Levodopa (Carbidopa-Levodopa 25-100 Tab), 1 TAB PO QID, (Reported) Carbidopa/Levodopa (Carbidopa-Levo ER 25-100 Tab), 2 TAB PO QAM, (Reported) Carbidopa/Levodopa (Carbidopa-Levo ER 50-200 Tab), 1 TAB PO HS, (Reported) Carvedilol (Carvedilol), 1 TAB PO BID, (Reported) Cholecalciferol (Vitamin D), 2 TAB PO DAILY, (Reported) Cyanocobalamin (Vitamin B-12) (Vitamin B-12), 1 TAB SL DAILY, (Reported) Digoxin (LANOXIN tablet), 1 TAB PO HS, (Reported) Docusate Sodium (Colace), 1 CAP PO Q12H, (Reported) Losartan Potassium (Losartan Potassium), 1 TAB PO DAILY, (Reported) Lovastatin* (Mevacor*), 1 TAB PO HS, (Reported) Scheduled PRN Hydrocodone/Acetaminophen (Hydrocodon-Acetaminophn 10-300), 1 TAB PO TID PRN for pain, (Reported) ONDANSETRON ODT 4mg tablet (Ondansetron Odt), 1 TABLET PO Q6H PRN for nausea/vomiting, (Reported) Past Medical History Past Medical History: CVA/TIA/Stroke, Hernia Past Surgical History: abdominal surgery Other Past Surgical History: Hernia repair Patient History: Patient reports no known family medical history. Drug Use: none Lives with: Family Lives In: Home Review of Systems All Other Systems at this time: Reviewed and Negative ROS As stated above in the HPI, otherwise all systems are reviewed and negative. Physical Exam Vital Signs: Temperature: 97.6, Source: Temporal, Heart Rate: 60, Respiratory Rate: 13, BP: 107/62, Pulse Oximetry: 98, Weight: 77.270 Physical Exam General: Alert, no apparent distress. mild tremors Respiratory: Lungs clear, no respiratory distress. Cardiovascular: Atrial fibrillation and rhythm, no murmurs. Extremities: Normal range of motion, no deformity. Neurologic: Oriented x4. Cranial nerves intact Psychiatric: Normal mood and affect. Progress Results/Orders Results/Orders Orders - FERNANDO DELGADO SCIENTIFIC WRITER Orthostatic Vs (06/21/24 ) Ct Head (06/21/24 14:18) Completed Orders - FERNANDO DELGADO SCIENTIFIC WRITER Ct Head (06/21/24 14:18) Vital Signs 06/21/24 06/21/24 06/21/24 06/21/24 13:08 13:55 14:12 14:59 Temp 97.6 97.6 Pulse 60 93 92 92 90 Resp 18 13 21 B/P (MAP) 107/62 107/93 122/85 107/72 106/64 Pulse Ox 98 99 Laboratory Tests Test 06/21/24 13:07 White Blood Count 5.3 Red Blood Count 4.02 L Hemoglobin 13.9 L Hematocrit 41.6 L Mean Corpuscular Volume 103.5 H Mean Corpuscular Hemoglobin 34.7 H Mean Corpuscular Hemoglobin Concent 33.5 Red Cell Distribution Width 14.3 Platelet Count 142 Mean Platelet Volume 8.6 Neutrophils (%) (Auto) 65.1 Lymphocytes (%) (Auto) 20.2 L Monocytes (%) (Auto) 7.5 Eosinophils (%) (Auto) 6.0 Basophils (%) (Auto) 1.2 H Neutrophils # (Auto) 3.5 Lymphocytes # (Auto) 1.1 Monocytes # (Auto) 0.4 Eosinophils # (Auto) 0.3 Basophils # (Auto) 0.1 CBC Comment Sodium Level 142 Potassium Level 4.6 Chloride Level 110 H Carbon Dioxide Level 27.3 Anion Gap 5 L Blood Urea Nitrogen 31 H Creatinine 1.35 H Estimated GFR/1.73 m2 51 BUN/Creatinine Ratio 23.0 H Glucose Level 93 Calcium Level 9.1 Total Bilirubin 0.7 Aspartate Amino Transf (AST/SGOT) 15 Alanine Aminotransferase (ALT/SGPT) < 6 L Alkaline Phosphatase 82 Troponin I High Sensitivity 14 Pro-B-Type Natriuretic Peptide 749 H Total Protein 7.3 Albumin 3.8 Globulin 3.5 Albumin/Globulin Ratio 1.1 Chemistry Comments Medical Decision Making Findings This pleasant 78-year-old male with several comorbidities combined with the likelihood of multiple etiologies that could contribute to dizziness I feel obligated to scan him. Especially with his history of CVA. He denies any history of anemia denies any dark stools his laboratory values do indicate mild anemia his blood pressure was on the low side while he has been here this may be due to medical management this could also contributed to his symptoms. The patient's CT scan did not indicate any intracranial abnormalities in his chest x-ray was unremarkable I spoke at length with the patient about his symptoms combined with his comorbidities. His is an excellent historian and states that she takes care of her daily I offered admission however the patient declined. He also reported that he would return to the ED for any worsening symptoms. Based on these findings feel that this is a safe discharge Differential Dx:Considerations: Include: anemia, CVA, dehydration, dysrhythmia, electrolyte imbalance, encephalopathy, Guillain-[place], hypoglycemia, hypotension, hypovolemia, labyrinthitis, Meniere's disease, myasathenia gravis, myocardial infarction, pulmonary embolus, renal failure, respiratory failure, TIA, VBI, vertigo central, vertigo peripheral, vestibular neuronitis, other Departure Disposition: 01 HOME / SELF CARE / HOMELESS Impression: Primary Impression: Dizziness Condition: Stable Discharge Instructions: Dizziness Additional Instructions: As discussed I recommend that you return to the ED if you have any recurring dizziness or worsening symptoms. Referrals: NO PRIMARY CARE PROVIDER (PCP) Signature Scribe Signature: g Attestation: The note accurately reflects work and decisions made by me.Fernando Rueda NP 06/21/24 20:47 FERNANDO DELGADO NP Jun 21, 2024 14:17
--- NOTE | 2024-06-21 14:32 | RADIOLOGY REPORT ---
EXAM: CT CT HEAD HISTORY: DIZZY HX of CVA COMPARISON: CT CT HEAD on DOS: 03/22/23 TECHNIQUE: Axial images of the head were obtained and reformatted in coronal and sagittal planes. All CT scans at this medical facility are performed using dose modulation techniques as appropriate t o a performed exam including the following: Automated exposure control was utilized; adjustment of th e MA and/or KV according to patient size; and use of iterative reconstruction technique. CT Dose: CTDI volume is 56 mGy. Dose-length product is 1005 mGy*cm FINDINGS: There is no evidence of acute intracranial hemorrhage, mass, mass effect midline shift. There is no h ydrocephalus or extra-axial fluid collection. There are patchy chronic microvascular ischemic change s in the supratentorial white matter. Hu-white matter differentiation is maintained. The visualized paranasal sinuses and mastoid air cells are clear. The calvarium is intact. IMPRESSION: 1. No acute intracranial process. HS:Y
[2024-06-21 14:59] VITALS: BP 122/85; PULSE 92; RESP 21; TEMP 97.6; O2SAT 99
== END 2024-06-21 15:00 | disposition home or self-care (01) ==
LOC: ER 12:56
DX: R42 Dizziness and giddiness (principal); G20.A1 Parkinson's disease without dyskinesia, without mention of fluctuations; I48.91 Unspecified atrial fibrillation; I50.9 Heart failure, unspecified; Z86.73 Personal history of transient ischemic attack (TIA), and cerebral infarction without residual deficits; Z98.890 Other specified postprocedural states
CPT/HCPCS: 36415; 70450; 71045; 80053; 83880; 84484; 85025; 93005; 99285